=== PATIENT | female | born 1990 | race Caucasian/White ===

== ENCOUNTER 2018-04-20 16:33 | Emergency (ER) | payer MEDICAID ==
[~2018-04-20] VITALS: Ht 157.5 cm; Wt 79.8 kg
[2018-04-20 16:42] VITALS: Ht 157.5 cm; Wt 79.8 kg
[2018-04-20 19:49] VITALS: BP 106/88
== END 2018-04-20 19:49 | disposition home or self-care (01) ==
LOC: ED 16:33
DX: S09.8XXA Other specified injuries of head, initial encounter (principal); S13.4XXA Sprain of ligaments of cervical spine, initial encounter; S20.212A Contusion of left front wall of thorax, initial encounter; S73.102A Unspecified sprain of left hip, initial encounter; V49.9XXA Car occupant (driver) (passenger) injured in unspecified traffic accident, initial encounter; Y93.I9 Activity, other involving external motion; Y92.488 Other paved roadways as the place of occurrence of the external cause; Y99.8 Other external cause status
CPT/HCPCS: J2270; Q0162